=== PATIENT | male | born 1985 | race Caucasian/White ===

== ENCOUNTER 2020-02-12 15:24 | Observation (INO) | payer OTHER, MEDICARE, SELFPAY ==
[2020-02-12] VITALS (9 sets, daily range): BP systolic 102–152; BP diastolic 51–95; PULSE 61–77; RESP 15–21; TEMP 36.4–36.8; O2SAT 97–100; BMI 29.0; BMI 27.6
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
--- NOTE | 2020-02-12 16:55 | ED.RN ---
ATTEMPTED TO CALL JOSSELINE FRANCIS X2 NO ANSWER EITHER TIME. NO WAY TO LEAVE A MESSAGE
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
[2020-02-12] MEDS: Propofol 200 MG/20 ML Vial 240 MG IV BOLUS (16:59)
--- NOTE | 2020-02-12 17:03 | PCM.OPRPT ---
Problem List (1) Rectal foreign body Status: Acute Qualifiers: Encounter type: initial encounter Qualified Code(s): T18.5XXA - Foreign body in anus and rectum, initial encounter (2) GI bleed Status: Acute Qualifiers: GI bleed type/associated pathology: anorectal hemorrhage Qualified Code(s): K62.5 - Hemorrhage of anus and rectum Report of Operation Date of Procedure: 02/12/20 Pre-Operative Diagnosis: Rectal foreign body Post-Operative Diagnosis: Same Surgery/Procedure Performed:: Rectal foreign body removal Specimen's removed: Foreign body, metallic shot glass Description of Procedure: The patient was placed in right lateral decubitus position and the emergency room physician administered conscious sedation. A well lubricated finger was inserted into the anus and the cup appeared lodged over the sacrum. A lubricated anoscope was placed into the anus and the area was inspected. The foreign body was then grasped with a finger and delivered anteriorly around the sacrum. It was then able to be grasped and removed. The patient did have blood clots that were delivered with the metallic cup. There were no sharp edges on the cup and there was no bright red blood but the patient did have a dark red clots. The patient did not have any severe pain with the procedure and denies any abdominal pain after the procedure. Patient will be admitted for observation. - Admit VTE Documentation VTE Mechan Device Prophylaxis: SCD's
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
[2020-02-12 17:10] LABS: Absolute Lymphocyte Count 1.29 X10^3/uL (0.83-4.51); Absolute Neutrophil Count 7.3 X10^3/uL (2.0-7.7); Basophil# 0.02 X10^3/uL; Basophil% 0.2 % (0-1); Eosinophil# 0.05 X10^3/uL; Eosinophils% 0.5 % (0-5); Hematocrit 43.9 % (40-54); Hemoglobin 14.8 g/dL (13.0-16.5); Lymphocyte # 1.29 X10^3/ul (4.0); Lymphocyte % 13.6 % (19-41); Mean Corp Hgb Conc 33.7 g/dL (32-36); Mean Corpuscular Volume 88.9 fL (80-94); Mean Platelet Vol. 10.3 fl (6.2-12.0); Monocyte# 0.84 X10^3/uL; Monocyte% 8.8 % (0-10); NRBC Flagged by Analyzer 0 % (0-5); Neutrophil # 7.25 X10^3/uL (2.7-7.7); Neutrophil % 76.3 % (47-70); Platelet Count 279 K/mm3 (150-450); RBC Distribution Width CV 12.8 % (11.6-14.6); RBC Distribution Width SD 41.6 fl (35.1-43.9); Red Blood Count 4.94 M/mm3 (4.6-6.2); White Blood Count 9.5 K/mm3 (4.4-11.0)
[2020-02-12 17:18] LABS: Anion Gap 5 (5-15); BUN 12 mg/dL (7-18); BUN/Creat Ratio 11.4 RATIO (10-20); Calcium,Total 8.6 mg/dL (8.5-10.1); Chloride 109 mmol/L (98-107); Creatinine, Serum 1.05 mg/dL (0.70-1.30); EST Glomerular Filtration Rate 87 mL/min (>60); Est Glom Filt Rate - Afr Amer 105 mL/min (>60); Estimated Creatinine Clearance 114.14 ml/min; Glucose 82 mg/dL (74-106); Potassium 3.6 mmol/L (3.5-5.1); Sodium Level 141 mmol/L (136-145)
[2020-02-12 17:42] LABS: International Normalized Ratio 1.1; Prothrombin Time (Protime)PT. 13.8 SECONDS (11.7-14.9)
[2020-02-12 17:43] LABS: Partial Thromboplast Time 26.4 Seconds (24.1-36.2)
--- NOTE | 2020-02-12 23:21 | NURSING ---
Patients home medications placed in med drawer.
[2020-02-13 05:10] VITALS: BP 124/75; PULSE 57; RESP 18; TEMP 36.6; O2SAT 98
[2020-02-13 05:52] LABS: Absolute Lymphocyte Count 2.29 X10^3/uL (0.83-4.51); Absolute Neutrophil Count 3.8 X10^3/uL (2.0-7.7); Basophil# 0.03 X10^3/uL; Basophil% 0.4 % (0-1); Eosinophil# 0.18 X10^3/uL; Eosinophils% 2.6 % (0-5); Hematocrit 44.2 % (40-54); Hemoglobin 15.2 g/dL (13.0-16.5); Lymphocyte # 2.29 X10^3/ul (4.0); Lymphocyte % 32.6 % (19-41); Mean Corp Hgb Conc 34.4 g/dL (32-36); Mean Corpuscular Hgb 31.1 pg (27.0-32.0); Mean Corpuscular Volume 90.4 fL (80-94); Mean Platelet Vol. 10.1 fl (6.2-12.0); Monocyte# 0.71 X10^3/uL; Monocyte% 10.1 % (0-10); NRBC Flagged by Analyzer 0 % (0-5); Neutrophil # 3.78 X10^3/uL (2.7-7.7); Neutrophil % 53.7 % (47-70); Platelet Count 236 K/mm3 (150-450); RBC Distribution Width CV 12.8 % (11.6-14.6); RBC Distribution Width SD 41.9 fl (35.1-43.9); Red Blood Count 4.89 M/mm3 (4.6-6.2)
[2020-02-13 06:06] LABS: Anion Gap 4 (5-15); BUN 11 mg/dL (7-18); BUN/Creat Ratio 10.4 RATIO (10-20); Calcium,Total 8.3 mg/dL (8.5-10.1); Chloride 105 mmol/L (98-107); Creatinine, Serum 1.06 mg/dL (0.70-1.30); EST Glomerular Filtration Rate 86 mL/min (>60); Est Glom Filt Rate - Afr Amer 104 mL/min (>60); Estimated Creatinine Clearance 113.07 ml/min; Glucose 99 mg/dL (74-106); Potassium 3.2 mmol/L (3.5-5.1); Sodium Level 138 mmol/L (136-145)
--- NOTE | 2020-02-13 07:35 | PN.SURG_ITS ---
Patient Problems: Active and Suspected Problems Rectal foreign body (Acute) GI bleed (Acute) Alcohol abuse (Acute) Subjective: Patient is doing well. He had a bowel movement this morning with no blood. He has no abdominal pain. - Physical Exam Vitals/I&O's: Vital Signs Temp Pulse Resp BP Pulse Ox 97.9 F 57 L 18 124/75 H 98 02/13/20 05:10 02/13/20 05:10 02/13/20 05:10 02/13/20 05:10 02/13/20 05:10 Oxygen Flow Rate (L/min) [2] 4 Oxygen Delivery Method [3] Nasal Cannula Oxygen Delivery Method [2] Nasal Cannula Oxygen Delivery Method [1 ( Room Air Initial Baseline)] Oxygen Delivery Method Room Air Weight: 209 lb Body Mass Index (BMI) 27.6 Intake and Output for Last 24 Hours 02/11/20 02/12/20 02/13/20 23:59 23:59 23:59 Intake Total 450 / 450 350 / 350 Balance 450 / 450 350 / 350 General: Alert, Oriented x3 Neck: No JVD Lungs: Clear to auscultation, Normal air movement Abdomen: Soft, Non Tender, Non-Distended Laboratory Results 02/12/20 16:05: WBC 9.5, RBC 4.94, Hgb 14.8, Hct 43.9, MCV 88.9, MCH 30.0, MCHC 33.7, RDW Std Deviation 41.6, RDW Coeff of Hansel 12.8, Plt Count 279, MPV 10.3, Immature Gran % (Auto) 0.600, Neut % (Auto) 76.3 H, Lymph % (Auto) 13.6 L, [place] % (Auto) 8.8, Eos % (Auto) 0.5, Baso % (Auto) 0.2, Absolute Neuts (auto) 7.3, Absolute Lymphs (auto) 1.29, Nucleated RBC % 0 02/12/20 16:05: PT 13.8, INR 1.1, APTT 26.4 02/12/20 16:05: Sodium 141, Potassium 3.6, Chloride 109 H, Carbon Dioxide 27.0, Anion Gap 5, BUN 12, Creatinine 1.05, Estim Creat Clear Calc 114.14, Est GFR (MDRD) Af Amer 105, Est GFR (MDRD) Non-Af 87, BUN/Creatinine Ratio 11.4, Glucose 82, Calcium 8.6 02/13/20 05:30: WBC 7.0, RBC 4.89, Hgb 15.2, Hct 44.2, MCV 90.4, MCH 31.1, MCHC 34.4, RDW Std Deviation 41.9, RDW Coeff of Hansel 12.8, Plt Count 236, MPV 10.1, Immature Gran % (Auto) 0.600, Neut % (Auto) 53.7, Lymph % (Auto) 32.6, [place] % (Auto) 10.1 H, Eos % (Auto) 2.6, Baso % (Auto) 0.4, Absolute Neuts (auto) 3.8, Absolute Lymphs (auto) 2.29, Nucleated RBC % 0 02/13/20 05:30: Sodium 138, Potassium 3.2 L, Chloride 105, Carbon Dioxide 29.0, Anion Gap 4 L, BUN 11, Creatinine 1.06, Estim Creat Clear Calc 113.07, Est GFR (MDRD) Af Amer 104, Est GFR (MDRD) Non-Af 86, BUN/Creatinine Ratio 10.4, Glucose 99, Calcium 8.3 L Current Medications Acetaminophen (Tylenol) 650 mg PO Q4H PRN PRN PRN Reason: Pain or Fever Sodium Chloride () 250 mls @ 15 mls/hr IV .[id number] PRN PRN Reason: Saline Flush Sodium Chloride () 250 mls @ 15 mls/hr IV .[id number] PRN PRN Reason: Additional IVPB Infusion Lorazepam (Ativan) 2 mg IV Q6H PRN PRN PRN Reason: Alcohol Withdrawal Multivitamins (Multivitamin) 1 tablet PO DAILYCM STAN Ondansetron HCl (Zofran) 4 mg IV Q6H PRN PRN PRN Reason: NAUSEA Sodium Chloride () 10 - 40 ml IV UD PRN PRN Reason: SALINE FLUSH Medical Necessity - Tobacco Use Smoking Status: Current some day smoker Assessment/Plan All Active Problems Rectal foreign body (Acute) GI bleed (Acute) Alcohol abuse (Acute) 35-year-old male status post foreign body removal from the rectum Patient seems to be doing well. He has no abdominal pain. He has no rectal bleeding. He had a bowel movement today which was normal. Will DC patient home. Wilson Bishop MD Pager: [facility] [address] [place] [address], [address] [place] [address] Office:
--- NOTE | 2020-02-13 07:37 | PCM.DC ---
- Discharge Diagnoses Current Active Problems: Current Active and Chronic Problems Rectal foreign body (Acute) GI bleed (Acute) Alcohol abuse (Acute) You will use the following diet at home:: No restrictions, Regular Your food should be the consistency of: Regular Discharge Activity: Return to Normal Activity Call your doctor if your incision/area has: Sudden Increased Bleeding, Increased Pain/ Swelling Call your doctor if you observe: Fever of 101 or Higher Allergies/Adverse Reactions: Allergies No Known Allergies Allergy (Verified 02/12/20 15:26) Medications to take at Discharge Sertraline HCl [Zoloft] 100 mg PO BID 04/28/15 traZODone [Desyrel] 100 mg PO QHS 02/12/20 Acetaminophen [Tylenol Tablet] 650 mg PO Q4H PRN PRN tablet 02/13/20 Primary Care Physician: [facility] [Primary Care Provider] - Test Results: Test results from this visit will be discussed in further detail at your follow-up appointment, if applicable.
[2020-02-13 09:14] VITALS: BP 133/80; PULSE 65; RESP 18; TEMP 36.7; O2SAT 98
== END 2020-02-13 09:20 | disposition home or self-care (01) ==
LOC: ED 17:02 → MS3 17:13
PROVIDERS: Admitting Provider Surgery; Emergency Provider Physician Assistant Medical; Visit Provider Internal Medicine
DX: T18.5XXA Foreign body in anus and rectum, initial encounter (principal); X58.XXXA Exposure to other specified factors, initial encounter; F17.200 Nicotine dependence, unspecified, uncomplicated; K92.1 Melena; F10.10 Alcohol abuse, uncomplicated; F32.9 Major depressive disorder, single episode, unspecified; F41.9 Anxiety disorder, unspecified; Z79.899 Other long term (current) drug therapy; F43.12 Post-traumatic stress disorder, chronic
CPT/HCPCS: 46608; 36415; 74018; 80048; 85025; 85610; 85730; 99152; 99218; 99285; 99406; J7030; A4216; G0378

== ENCOUNTER 2021-02-03 11:20 | Emergency (ER) | payer OTHER, MEDICARE, SELFPAY ==
[2020-02-12 17:33] VITALS: BMI 27.6
[2021-02-03 11:21] VITALS: BP 121/85; RESP 16; TEMP 36.2; O2SAT 99; BMI 29.0
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
--- NOTE | 2021-02-03 11:36 | CT_ITS ---
STUDY: CT BRAIN WITHOUT CONTRAST REASON FOR EXAM: Male, 35 years old. head injury RADIATION DOSAGE (If Supplied By Facility): CTDIvol = ( 19.69 ) mGy, DLP = ( 397.06 ) mGycm TECHNIQUE: Transaxial CT imaging of the brain was performed without administration of intravenous contrast material. Individualized dose optimization techniques were used for this CT. COMPARISON: No relevant priors. FINDINGS: Normal soft tissue structures. Normal calvarium. Normal size ventricles and extra-axial spaces for the patient''s age. Normal white matter tracts of the cerebral hemispheres. There are small punctate calcifications of the bilateral basal ganglia. The differential diagnostic considerations includes: Fahrs disease, or endocrine disorders (hyperparathyroidism, hypoparathyroidism, pseudohypoparathyroidism). The incidental discovery of basal ganglia calcifications in a patient less than 50 years of age merits investigation. Normal brainstem. There is some linear areas of increased attenuation within the cerebellum which has the appearance of subarachnoid hemorrhage but is felt to represent calcification within the white matter of the cerebellum with more dense calcification within the vermis. This is likely related to the calcification of the basal ganglia. On image 18, there is a curvilinear area of increased attenuation within the right occipital lobe worrisome for acute subarachnoid hemorrhage within a sulcus. There are no findings of an acute ischemic infarction. Normal visualized paranasal sinuses. CT/Brain/Head without Contrast IMPRESSION: 1. Suspect small amount of acute subarachnoid hemorrhage within a sulcus of the right occipital lobe. 2. Extensive basal ganglia and white matter calcification likely related to metabolic disease. Clinical correlation is recommended. N.B. : The above Results were Read Back by Jude Beckford MD to Jeff Everett and understanding confirmed on 02/03/2021 12:35:44 (ET). Electronically Signed: Jude Beckford MD at 12:40 EDT Tel , Service support ,
--- NOTE | 2021-02-03 11:42 | ED.VIS.FALL ---
HPI HPI - Fall History of Present Illness Chief Complaint: Fall Narrative Narrative: Patient is a 35-year-old male with past medical history of TBI. He states he was at a [employer] last night and was drinking heavily. When he returned home friends informed his soon-to-be bride that he had fallen and struck his head. Patient denies any blood thinner use and states that he is not had any vomiting. He reports he has had a headache with light sensitivity and nausea however. He is unsure if this is related to the binge drinking of alcohol or the trauma and therefore comes in for evaluation especially with his history of TBI. He also reports he injured his left knee and there is swelling to the area but states he is able to ambulate without difficulty. [facility] Medical History (Updated 02/03/21 @ 13:[address] Jeff Everett, ) PTSD (post-traumatic stress disorder) TBI (traumatic brain injury) Home Medications sertraline 100 mg PO BID 04/28/15 [History Last Taken Unknown] trazodone 100 mg PO QHS 02/12/20 [History Last Taken Unknown] acetaminophen 650 mg PO Q4H PRN PRN tab 02/13/20 [Rx Last Taken Unknown] Allergy/AdvReac Type Severity Reaction Status Date / Time No Known Allergies Allergy Verified 02/12/20 15:26 Social History Smoking Status: Current every day smoker tobacco type: cigarettes ROS ROS ED Constitutional Constitutional ED: Denies fever(s) or subjective Eyes Eyes: Reports other Details: positive photophobia ENT ENT ED: Denies rhinorrhea Respiratory/Chest Respiratory/Chest: Denies cough or dyspnea Gastrointestinal Gastrointestinal: Reports nausea; Denies diarrhea or vomiting Genitourinary Genitourinary ED: Denies dysuria or hematuria Musculoskeletal Musculoskeletal: Reports arthralgias Integumentary Reports Abrasions Neurologic Neurologic: Reports headache(s) Hematologic/Lymphatic Hematologic/Lymphatic: Denies easy bleeding or easy bruising EXAM Physical Exam Const Vital Signs: 02/03/21 11:21 02/03/21 11:54 Temperature 97.2 F L Temperature Source Temporal Respiratory Rate 16 Respiratory Effort Normal Non-Labored Respiratory Depth Normal Respiratory Pattern Normal Blood Pressure 121/85 H Blood Pressure Mean 97 Pulse Ox 99 Oxygen Delivery Method Room Air Positive well nourished and well developed General Appearance ED: well developed HEENT HEENT Narrative: Patient has superficial abrasion to the occipital portion of his scalp consistent with head trauma and there is a small hematoma at the site. However no signs of depressed or basilar skull fracture Eyes PERRL and EOMs intact bilaterally Neck Neck Narrative: No bony deformity or step-off of the cervical spine but there is mild midline pain on palpation. Patient also has right paracervical tension and spasm noted Chest Wall inspection of chest normal Resp normal respiratory effort and clear to auscultation bilaterally Cardio regular rate, regular rhythm and no murmurs GI non-tender and non-distended Auscultation: normoactive bowel sounds Palpation: soft Back/Spine Back/Spine Narrative: No bony deformity or step-off of the thoracic or lumbar spine no midline pain on palpation Extremity Extremity Narrative: Patient has soft tissue swelling with superficial abrasion to the anterior aspect of the left knee consistent with his report of fall. There is no ligamentous laxity however in the patellar tendon is intact bilateral. Neuro oriented x3 Sensorium / Orientation: alert Psych mental status grossly normal Skin Skin Narrative: Superficial abrasion to the left knee and occiput as documented above MDM MDM MDM Narrative Medical decision making narrative: Patient presented to the ER awake and alert with stable vital. He had no signs of depressed or basilar skull fracture but with his report of trauma and exam findings consistent with this imaging studies were ordered. The CT did show changes concerning for a small subarachnoid at the area where he has trauma on his head/scalp. The patient is neurovascularly intact without blood thinner use and is awake alert and oriented but with the report of trauma and now brain bleed he will need transfer to a trauma center. Therefore the case was discussed with [facility] where the patient wished to go and they do agree to accept the patient at this time Radiography Diagnostic Testing: Radiology Impression Brain CT 02/03/21 11:36 IMPRESSION: 1. Suspect small amount of acute subarachnoid hemorrhage within a sulcus of the right occipital lobe. 2. Extensive basal ganglia and white matter calcification likely related to metabolic disease. Clinical correlation is recommended. N.B. : The above Results were Read Back by Jude Beckford MD to Jeff Everett and understanding confirmed on 02/03/2021 12:35:44 (ET). Electronically Signed: Jude Beckford MD at 12:40 EDT Tel , Service support , ADDENDUM: 02/03/21 1247 IMPRESSION: 1. Suspect small amount of acute subarachnoid hemorrhage within a sulcus of the right occipital lobe. 2. Extensive basal ganglia and white matter calcification likely related to metabolic disease. Clinical correlation is recommended. N.B. : The above Results were Read Back by Jude Beckford MD to Jeff Everett and understanding confirmed on 02/03/2021 12:35:44 (ET). Electronically Signed: Jude Beckford MD at 12:40 EDT Tel , Service support , Cervical Spine CT 02/03/21 11:36 IMPRESSION: No acute fracture or subluxation. Electronically Signed: Jude Beckford MD at 13:00 EDT Tel , Service support , Knee X-Ray 02/03/21 12:06 IMPRESSION: 1. No acute fracture or dislocation. 2. Severe prepatellar soft tissue swelling. Electronically Signed: Jude Beckford MD at 12:28 EDT Tel , Service support , Critical Care Time Critical Care Time: Yes Critical care time (excluding procedures): 30-74 minutes and - (Please note critical care time of 31 minutes) Discharge Plan Triage Chief Complaint: Fall ED Provider: Jeff Everett Dx/Rx/DC Orders Clinical Impression: Subarachnoid hemorrhage, Accidental fall, Hematoma of left knee region Prescriptions: No Action sertraline 100 MG tablet 100 mg PO BID RF: 0 trazodone 100 MG tablet 100 mg PO QHS RF: 0 acetaminophen 325 MG tablet 650 mg PO Q4H PRN PRN (Reason: Pain Or Fever) RF: 0 [facility] [Primary [facility] Provider] - Disposition Disposition: Acute Care Hospital Discharge Location: [facility]
[2021-02-03] MEDS: Ondansetron 4 MG/2 ML Vial IV (11:52)
[2021-02-03] MEDS: Famotidine 200 MG/20 ML MDV 20 MG in 0.9% Normal Saline (Pres. free 8 ML 300 MG IV (11:52)
[2021-02-03] MEDS: 0.9% Normal Saline 1,000 ML 999 ML IV (11:52)
--- NOTE | 2021-02-03 12:06 | RAD_ITS ---
STUDY: X-RAY - LEFT KNEE REASON FOR EXAM: Male, 35 years old. fall TECHNIQUE: 4 view(s) of the knee. COMPARISON: None. FINDINGS: Normal visualized distal femur. Normal visualized proximal tibia and fibula. Normal proximal tibiofibular articulation. Normal medial femorotibial compartment. Normal lateral femorotibial compartment. Normal patellofemoral articulation. Significant prepatellar soft tissue swelling. RAD/Knee 4 or More Views IMPRESSION: 1. No acute fracture or dislocation. 2. Severe prepatellar soft tissue swelling. Electronically Signed: Jude Beckford MD at 12:28 EDT Tel , Service support ,
[2021-02-03] MEDS: Ondansetron 4 MG/2 ML Vial IM (13:32)
[2021-02-03] MEDS: Morphine 4 MG/ML Syringe IV (13:33)
[2021-02-03] MEDS: Diphth,Pertuss(Acell),Tet Vac 0.5 ML Vial IM (13:33)
[2021-02-03 13:40] VITALS: BP 129/85; PULSE 73; RESP 15; O2SAT 95
[2021-02-03 13:44] LABS: Absolute Lymphocyte Count 1.23 X10^3/uL (0.83-4.51); Absolute Neutrophil Count 8.2 X10^3/uL (2.0-7.7); Basophil# 0.03 X10^3/uL; Basophil% 0.3 % (0-1); Eosinophil# 0.03 X10^3/uL; Eosinophils% 0.3 % (0-5); Hematocrit 46.4 % (40-54); Hemoglobin 15.9 g/dL (13.0-16.5); Lymphocyte # 1.23 X10^3/ul (0.83-4.51); Mean Corp Hgb Conc 34.3 g/dL (32-36); Mean Corpuscular Hgb 29.6 pg (27.0-32.0); Mean Corpuscular Volume 86.4 fL (80-94); Mean Platelet Vol. 9.8 fl (6.2-12.0); Monocyte# 0.68 X10^3/uL; Monocyte% 6.6 % (0-10); NRBC Flagged by Analyzer 0 % (0-5); Neutrophil # 8.21 X10^3/uL (2.7-7.7); Neutrophil % 80.3 % (47-70); Platelet Count 299 K/mm3 (150-450); RBC Distribution Width CV 12.4 % (11.6-14.6); RBC Distribution Width SD 39.1 fl (35.1-43.9); Red Blood Count 5.37 M/mm3 (4.6-6.2); White Blood Count 10.2 K/mm3 (4.4-11.0)
[2021-02-03 13:53] LABS: Prothrombin Time (Protime)PT. 12.7 SECONDS (11.7-14.9)
[2021-02-03 13:57] LABS: Anion Gap 6 (5-15); BUN 7 mg/dL (7-18); BUN/Creat Ratio 7.6 RATIO (10-20); Calcium,Total 8.7 mg/dL (8.5-10.1); Chloride 108 mmol/L (98-107); Creatinine, Serum 0.92 mg/dL (0.70-1.30); EST Glomerular Filtration Rate 100 mL/min (>60); Est Glom Filt Rate - Afr Amer 121 mL/min (>60); Estimated Creatinine Clearance 129.07 ml/min; Glucose 106 mg/dL (74-106); Potassium 4.4 mmol/L (3.5-5.1); Sodium Level 142 mmol/L (136-145)
[2021-02-03 13:58] VITALS: BP 129/85; PULSE 73; RESP 15; O2SAT 95
--- NOTE | 2021-02-03 14:28 | ED.RN ---
PER [facility] INSTRUMENT TESTER; ETA FOR TRANSPORT PHYSICIANS OF 60 TO 75 MIN AT 1346; REPORTED THIS IS NOT ACCEPTABLE FOR A [facility] TRANSFER INSTRUMENT TESTER CALLED BACK TO REPORT WE NEEDED A FASTER ETA. NO CALLED RETURNED. I CALLED WHEN RETURNING FROM [place] AT 1424 WAS ASKED IF I COULD BE PUT ON HOLD; I DECLINED BEING PUT ON HOLD AGAIN, THAT WE HAVE A TRAMA AND HAD NOT RECEIVED A CALL BACK REGARDING FASTER ETA, PHYSICANS GAVE AN ETA OF 32 MINUTES, REPORTED TO DR JANE WHO WAS OK WITH THIS DUE TO PT BEING STABLE.
== END 2021-02-03 15:15 | disposition short-term general hospital (02) ==
PROVIDERS: Emergency Provider Emergency Medicine
DX: S06.6X0A Traumatic subarachnoid hemorrhage without loss of consciousness, initial encounter (principal); S80.02XA Contusion of left knee, initial encounter; S00.01XA Abrasion of scalp, initial encounter; W19.XXXA Unspecified fall, initial encounter; Y93.9 Activity, unspecified; Y92.9 Unspecified place or not applicable; Y99.9 Unspecified external cause status; Z87.820 Personal history of traumatic brain injury; F43.10 Post-traumatic stress disorder, unspecified; Z79.899 Other long term (current) drug therapy; F17.210 Nicotine dependence, cigarettes, uncomplicated; Z23 Encounter for immunization
CPT/HCPCS: 70450; 72125; 73564; 80048; 85025; 85610; 85730; 90715; 96361; 96372; 96374; 96375; 99285; J7030; A4216; J2405; J3490

== ENCOUNTER → 2021-04-22 08:32 | Outpatient (CLI) | payer MEDICARE, SELFPAY | PROVIDERS: Referring Provider Physician Assistant; Visit Provider Physician Assistant | DX: Z11.52 Encounter for screening for COVID-19 (principal) | CPT/HCPCS: 87635; U0005; U0003 ==

== ENCOUNTER 2022-03-02 09:26 | Emergency (ER) | payer OTHER, SELFPAY ==
[2022-03-02 09:27] VITALS: BP 163/103; PULSE 84; RESP 18; TEMP 36.6; O2SAT 97; BMI 29.8
--- NOTE | 2022-03-02 09:31 | ED.RN ---
PT ANGRY IN TRIAGE ROOM. PT CONTINUALLY STATING FUCK THIS. PT REMINDED LANGUAGE NOT ACCEPTABLE
--- NOTE | 2022-03-02 10:03 | EDS_ITS ---
HPI History of Present Illness Chief Complaint: Other, Pain/Inj Informant: patient Onset/Context/Timing Onset: Today Context: Gradual Onset Timing: Continuous Quality: Throbbing Location: Generalized head Worsened by: Light Relieved by: Nothing Narrative Narrative: Patient presents with a headache that began this morning. Patient states he woke up with it approximately 9 hours prior to arrival. Patient states the pain starts in his upper neck and radiates to the front of his head. Patient describes it as throbbing. Patient states it is all over his head. Patient states it is worse with light. Patient states nothing makes it better. Patient has a history of traumatic brain injury but states this headache feels different. Patient admits to some nausea and vomiting. Patient denies any fevers or chills. Patient denies any blurry vision or double vision. [facility] Medical History PTSD (post-traumatic stress disorder) TBI (traumatic brain injury) Home Medications NK 03/02/22 [History Last Taken Unknown] Allergy/AdvReac Type Severity Reaction Status Date / Time No Known Allergies Allergy Verified 03/02/22 09:29 Surgical History no surgical history no surgical history Social History Smoking Status: Current every day smoker tobacco type: cigarettes ROS ROS ED Constitutional Constitutional ED: Denies chills or fever(s) Eyes Eyes: Denies blurry vision or change in vision ENT ENT ED: Denies rhinorrhea or sore throat Cardiovascular Cardiovascular: Denies chest pain or palpitations Respiratory/Chest Respiratory/Chest: Denies cough or dyspnea Gastrointestinal Gastrointestinal: Reports nausea and vomiting Genitourinary Genitourinary ED: Denies dysuria or hematuria Musculoskeletal Musculoskeletal: Reports neck pain; Denies back pain Integumentary Denies abscess or rash Neurologic Neurologic: Reports headache(s); Denies weakness Allergic/Immunologic Allergic/Immunologic ED: Denies mouth swelling or urticaria EXAM Physical Exam Const Vital Signs: 03/02/22 09:27 Temperature 97.8 F Temperature Source Temporal Pulse Rate 84 Respiratory Rate 18 Blood Pressure 163/103 H Blood Pressure Mean 123 Pulse Ox 97 Oxygen Delivery Method Room Air Positive well nourished and well developed General Appearance ED: well developed and NAD HEENT Reports moist mucous membranes Neck supple and no JVD Resp normal respiratory effort and clear to auscultation bilaterally Cardio regular rate, regular rhythm and no murmurs GI normal to inspection, nondistended, normoactive bowel sounds and non-tender Palpation: soft Extremity normal to inspection General Extremety ED: Negative for edema or tenderness General Extremity: Negative for edema Neuro oriented x3, CN's II-XII intact bilaterally and no sensory deficits noted Sensorium / Orientation: alert Motor Exam: strength 5/5 throughout Psych mental status grossly normal Skin no rashes or lesions noted MDM MDM MDM Narrative Medical decision making narrative: CT scan of the brain was obtained. There is no acute intracranial abnormality noted. This was interpreted by the radiologist and reviewed by myself. Patient was given IV fluids, Reglan, and Benadryl. Patient is feeling better on reevaluation. Patient was instructed to rest in a dark quiet room. Patient was instructed to follow-up with his primary care physician in 5 to 7 days. Patient understood and was agreeable with the plan. All questions were answered. Radiography Diagnostic Testing: Clinical Impression(s) from Imaging Studies Brain CT 03/02/22 10:06 IMPRESSION: Partial opacification of the visualized maxillary sinuses consistent with a history of sinusitis. Stable extensive calcification of the basal ganglia and thalami and white matter likely metabolic. Electronically Signed: Mulu Frey MD at 11:01 EDT , Discharge Plan Triage Chief Complaint: Other, Pain/Inj ED Provider: Leandro Joiner Dx/Rx/DC Orders Clinical Impression: Headache, Post traumatic stress disorder Instructions: Self-Care for Headaches, ED Pain, Acute, Uncertain Cause Prescriptions: No Action NK [facility] [Primary [facility] Provider[facility] - 3-5 Days Disposition Disposition: Home, Self Care
--- NOTE | 2022-03-02 10:06 | CT_ITS ---
STUDY: CT BRAIN WITHOUT CONTRAST REASON FOR EXAM: Male, 36 years old. Pain RADIATION DOSAGE (If Supplied By Facility): CTDIvol = ( 44.99 ) mGy, DLP = ( 796.11 ) mGycm TECHNIQUE: Transaxial CT imaging of the brain was performed without administration of intravenous contrast material. Individualized dose optimization techniques were used for this CT. COMPARISON: 02/03/2021 FINDINGS: Normal soft tissue structures. Normal calvarium. Normal size ventricles and extra-axial spaces for the patient''s age. Normal white matter tracts of the cerebral hemispheres. There are stable calcifications of the bilateral basal ganglia, basal ganglia and white matter of the frontal lobes. The differential diagnostic considerations includes: Fahrs disease, or endocrine disorders (hyperparathyroidism, hypoparathyroidism, pseudohypoparathyroidism). The incidental discovery of basal ganglia calcifications in a patient less than 50 years of age merits investigation. Normal brainstem. Normal cerebellum. There is no intracranial hemorrhage. There are no findings of an acute ischemic infarction. There is partial opacification of the visualized maxillary sinuses. CT/Brain/Head without Contrast IMPRESSION: Partial opacification of the visualized maxillary sinuses consistent with a history of sinusitis. Stable extensive calcification of the basal ganglia and thalami and white matter likely metabolic. Electronically Signed: Mulu Frey MD at 11:01 EDT ,
[2022-03-02] MEDS: DiphenhydrAMINE 50 MG/ML Syringe 25 MG IV (10:26)
[2022-03-02] MEDS: Metoclopramide 10 MG/2 ML Vial IV (10:26)
[2022-03-02] MEDS: 0.9% Normal Saline 1,000 ML 999 ML IV (10:26)
[2022-03-02 11:32] VITALS: BP 117/61; PULSE 75; RESP 16; O2SAT 98
== END 2022-03-02 11:37 | disposition home or self-care (01) ==
PROVIDERS: Emergency Provider Emergency Medicine; Visit Provider Emergency Medicine
DX: R51.9 Headache, unspecified (principal); F43.10 Post-traumatic stress disorder, unspecified; F17.210 Nicotine dependence, cigarettes, uncomplicated
CPT/HCPCS: 70450; 96374; 96375; 99282; J7030; A4216